=== PATIENT | female | born 1955 | race Caucasian/White ===

== ENCOUNTER 2022-10-22 09:01 | Outpatient (REF) | payer OTHER, SELFPAY ==
--- NOTE | ~2022-10-22 | XR_ITS ---
Exams: Bilateral weight bearing AP and oblique views and 2 additional views left knee lateral and sunrise projection. HISTORY: Pain. COMPARISON: 07/30/2020 FINDINGS: Weight-bearing imaging demonstrates severe degeneration of the left medial tibial femoral joint compartment with notable varus deformity. Generalized hypertrophic spurring. Mild less pronounced degeneration of the right medial femoral tibial joint compartment. No focal bony lesion or radiopaque loose body. No effusion. Moderate degeneration of the left patellofemoral joint. Slight lateral subluxation noted. XR/XR knee standing BI IMPRESSION: Advanced degenerative changes left knee as above. No acute findings. Appearance is similar to baseline allowing for technical differences.
--- NOTE | ~2022-10-22 | XR_ITS ---
Exams: Bilateral weight bearing AP and oblique views and 2 additional views left knee lateral and sunrise projection. HISTORY: Pain. COMPARISON: 07/30/2020 FINDINGS: Weight-bearing imaging demonstrates severe degeneration of the left medial tibial femoral joint compartment with notable varus deformity. Generalized hypertrophic spurring. Mild less pronounced degeneration of the right medial femoral tibial joint compartment. No focal bony lesion or radiopaque loose body. No effusion. Moderate degeneration of the left patellofemoral joint. Slight lateral subluxation noted. XR/XR knee LT 2V IMPRESSION: Advanced degenerative changes left knee as above. No acute findings. Appearance is similar to baseline allowing for technical differences.
== END 2022-10-22 09:02 | disposition home or self-care (01) ==
LOC: HO.HOSX 09:01
PROVIDERS: Visit Provider Orthopaedic Surgery
DX: M17.12 Unilateral primary osteoarthritis, left knee (principal); G31.83 Neurocognitive disorder with Lewy bodies; F02.80 Dementia in other diseases classified elsewhere, unspecified severity, without behavioral disturbance, psychotic disturbance, mood disturbance, and anxiety; R26.89 Other abnormalities of gait and mobility
CPT/HCPCS: 73560; 73565

== ENCOUNTER 2022-10-22 10:39 | Outpatient (AMB) | payer OTHER, SELFPAY ==
--- NOTE | 2022-10-22 10:47 | A.OFFVIS_ITS ---
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 No injury. Pain started about 1 yr ago and has worsen over time. Pain is in her left medial aspect. Radiates down her leg to her foot. Patient has tried cortiosne injection, knee aspirated and gel injection in may with no improvement. Currently states her knee gives out once in a while with on and off swelling. Patient has more allergies to medication and will bring in list next visit. 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 She has difficulties with hearing, has been diagnosed with Lewy body dementia, and is accompanied by her . She has pain with daily activity, which she says is severe and she she is unsure how I've endured this for so long . She says her pain has been worsening for ~1 year and has been worsening over time. She says her pain is in the inside of her knee and radiates down her leg at time. She is unable to stand comfortably without pain and this is frustrating for her. She walks with a shuffling gait and with a cane, and her often helps her walk so she does not fall. She is frustrated and upset with her inability to walk or go hiking with her , and she says this is all she wants to do . She found no relief from aspiration, steroid injections, or viscosupplementation performed at an outside clinic. She says she had relief from her first cortisone injection, but with her second cortisone injection she developed an allergic reaction and is unable to have more. Review of Systems Const All systems reviewed & are unremarkable except as noted in HPI and below Physical Exam Vital Signs: BMI result Body Mass Index 30.7 Const General: no acute distress, alert and awake Orientation/consciousness: patient oriented x3 HEENT Head: Yes normocephalic and Yes atraumatic Eyes EOM: EOMs intact bilaterally Resp Effort & Inspection: normal respiratory effort and able to speak in complete sentences Cardio Jugular venous distension: no JVD Skin General skin exam: turgor normal Rashes: no rashes Neuro General: patient oriented x3 Extrem Other: Left Knee: Shuffling gait Limited motion, ~10-120 degrees with pain TTP medial compartment, especially medial tibial plateau Psych Appearance: grossly normal Affect: normal affect Attitude: cooperative Assessment & Plan Assessment & Plan (1) Osteoarthritis of left knee: Code(s): M17.12 - Unilateral primary osteoarthritis, left knee Plan: This is a 67 year old woman with severe left knee OA. She has pain with daily activity, which she finds intolerable and limiting. She ambulates with a shuffling gait and with an assistive cane. She has failed conservative treatment options at an outside clinic, feels limited in her ADLs, an that her QOL is diminished. I discussed her diagnosis and treatment options. I think some of her poor gait mechanics is related to her Lewy body dementia and its affects on her [employer]. I think the risks of surgery outweight the benefits at this time. I recommend referral to Pain Management, and I think she is a good candidate for this. She has pain limiting her ADLs and wants to be more active. I referred her to Dr. Garcia in Pain Management. (2) Lewy body dementia: Code(s): G31.83 - Neurocognitive disorder with Lewy bodies; F02.80 - Dementia in other diseases classified elsewhere, unspecified severity, without behavioral disturbance, psychotic disturbance, mood disturbance, and anxiety (3) Shuffling gait: Code(s): R26.89 - Other abnormalities of gait and mobility Plan Scribed for Anil Cruz MD by David Bolanos, medical coordinator pesticide use, on 10/22/22 at 11:30 AM, EST. Orders: Orders XR knee LT 2V Today M25.569 - Pain in unspecified knee XR knee standing BI Today M25.569 - Pain in unspecified knee Referrals Pain Management Referral F02.80 - Dementia in other diseases classified elsewhere, unspecified severity, without behavioral disturbance, psychotic disturbance, mood disturbance, and anxiety, G31.83 - Neurocognitive disorder with Lewy bodies, M17.12 - Unilateral primary osteoarthritis, left knee Coding Level of Care Code New Pt Level 4 (54131) Diagnoses Osteoarthritis of left knee M17.12 Lewy body dementia G31.83; F02.80 Shuffling gait R26.89
[2022-10-22 11:04] VITALS: BMI 30.7
== END 2022-10-22 12:02 | disposition home or self-care (01) ==
PROVIDERS: PCP Pediatrics; Visit Provider Orthopaedic Surgery
DX: M17.12 Unilateral primary osteoarthritis, left knee (principal)
CPT/HCPCS: 99204

== ENCOUNTER 2022-11-15 10:15 | Outpatient (AMB) | payer OTHER, SELFPAY ==
[2022-11-15 10:43] VITALS: BP 132/76; PULSE 67; RESP 14; O2SAT 99; BMI 30.3
--- NOTE | 2022-11-15 10:43 | A.OFFVIS_ITS ---
Intake Vital Signs 11/15/22 10:43 Height 5 ft 6 in Weight 188 lb BMI 30.3 BP 132/76 Blood Pressure Location Lt brachial Position Sitting Respiration 14 Pulse 67 Pulse Source Pulse Oximeter Pulse Oximetry (%) 99 Oxygen Delivery Method Room Air Intake Visit Reasons: Unilateral primary osteoarthritis, left knee Allergies prednisolone Allergy (Mild, Verified 11/15/22 10:44) headaches Medication List - Last Reconciled 11/15/22 by Becca Love LPN losartan 25 mg PO DAILY mecobalamin (vitamin B12) mcg PO mirtazapine 7.5 mg PO DAILY HPI Unilateral primary osteoarthritis, left knee HPI Details 67-year-old female is presenting today for a new patient evaluation for left knee osteoarthritis. She has difficulties with hearing, has been diagnosed with Lewy body dementia, and is accompanied by her . She states that her pain has been worsening for about a year now and has been worsening overtime. She has pain with daily activity. Her pain is on the inside of her knee and radiates down her leg at times. She is unable to stand comfortably without pain, and this is frustrating for her. She walks with a shuffling gait and with a cane, and her often helps her walk so she does not fall. She is frustrated and upset with her inability to walk or go hiking with her . She had no relief from aspiration, steroid injections, or visco-supplementation performed at an outside clinic. She had relief from her first cortisone injection, but with her second cortisone injection, she developed an allergic reaction and is unable to have more. She had a fall after her third injection. She has known drug allergies to prednisone. She has tried physical therapy in the past. She has tried hyaluronic acid injection in the past. She had also tried oral medication and bracing in the past with moderate benefits. Review of Systems Const All systems reviewed & are unremarkable except as noted in HPI and below Physical Exam Vital Signs: Last Vital Signs Pulse 67 11/15/22 10:43 Resp 14 11/15/22 10:43 BP 132/76 11/15/22 10:43 Pulse Ox 99 11/15/22 10:43 Oxygen Delivery Method Room Air 11/15/22 10:43 BMI result Body Mass Index 30.3 General: Appears afebrile. Alert and oriented. Mood and affect appropriate. Follows and participates in conversation appropriately. Respiratory effort is unlabored. Able to transition from sit to stand unassisted. Ambulates with bilaterally normal heel strike and toe off. Tenderness to palpation all around the knee joint. Medial meniscus is tenderness to palpation. Left knee is visibly swollen compared to the right knee. Results Reviewed Results Reviewed: 10/22/22: Bilateral weight bearing AP and oblique views and 2 additional views left knee lateral and sunrise projection. FINDINGS: Weight-bearing imaging demonstrates severe degeneration of the left medial tibial femoral joint compartment with notable varus deformity. Generalized hypertrophic spurring. Mild less pronounced degeneration of the right medial femoral tibial joint compartment. No focal bony lesion or radio paque loose body. No effusion. Moderate degeneration of the left patellofemoral joint. Slight lateral subluxation noted. IMPRESSION: Advanced degenerative changes left knee as above. No acute findings. Appearance is similar to baseline allowing for technical differences. Assessment & Plan Assessment & Plan (1) Osteoarthritis of left knee: Comment: Intractable knee pain Code(s): M17.12 - Unilateral primary osteoarthritis, left knee Plan Discussed peripheral nerve stimulators both permanent and temporary vs. Genicular RFA vs. local anesthestic genicular nerve block vs. PRP injections as possible treatment options. The patient is interested in proceeding with temporary left saphenous nerve PNS at this time. Will schedule her for left temporary saphenous nerve PNS. D iscussed the risks and benefits of the procedure with the patient in detail. All questions were answered. The patient is on board with the plan. Justification for interventional therapy: ? Patient with average pain > 6/10 ? Patient has exhausted conservative therapy Scribed for Dr. Garcia by Jamie Kraus, hospitalist medical director, on 11/15/2022. I, Dr. Garcia, have personally reviewed and agree with the information entered by the scribe. Coding Level of Care Code New Pt Level 3 (58956) Diagnoses Osteoarthritis of left knee M17.12
== END 2022-11-15 11:38 | disposition home or self-care (01) ==
PROVIDERS: PCP Pediatrics; Visit Provider Internal Medicine
DX: M17.12 Unilateral primary osteoarthritis, left knee (principal)
CPT/HCPCS: 99203

== ENCOUNTER → 2022-11-15 10:15 | Outpatient (BNVA) | payer OTHER, SELFPAY | PROVIDERS: PCP Pediatrics; Visit Provider Internal Medicine ==

== ENCOUNTER 2023-01-05 09:23 | Day surgery (SDC) | payer MEDICARE, SELFPAY ==
[2023-01-05 10:25] VITALS: BP 132/54; PULSE 72; RESP 18; TEMP 37.4; O2SAT 97; BMI 29.0
[2023-01-05 12:00] VITALS: BP 163/96; PULSE 72; RESP 16; TEMP 36.4; O2SAT 100
--- NOTE | 2023-01-05 12:24 | MHC.SHP ---
Pre-Procedural Eval Section A Date of Service: 01/05/23 The patient is an INPATIENT: No Changes since office visit: Yes Patient answered all questions The History & Physical has been completed within 30 days and I have reviewed it.: No Section B Chief Complaint: Unilateral primary osteoarthritis, left knee Relevant Social History: None Present Medications: see Short Stay Collaborative assessment Medical History: No relevant PMH History of Previous Operations: No relevant previous surgery Allergies: Allergies Allergy/AdvReac Type Severity Reaction Status Date / Time prednisolone Allergy Mild headaches Verified 11/15/22 10:44 ibuprofen Allergy Unknown Verified 01/05/23 10:06 NSAIDS (Non-Steroidal Allergy Unknown Verified 01/05/23 10:06 Anti-Inflamma Review of Systems Sugical H&P ROS: Negative: Constitution, Cardiovascular and Respiratory Exam Surgical H&P Exam: Normal: HEENT, Normal: Heart and Normal: Lungs Plan Diagnosis/Plan: Unchanged I have reviewed the history and physical and performed a pertinent physical examination on my patient. No changes have occurred unless specified. Time Spent With Patient Time: Total time managing care of this patient today ____ minutes.
--- NOTE | 2023-01-05 15:42 | PM.OP ---
Brief Operative Note Date of Service: 01/05/23 Pre-op diagnosis: Chronic knee pain, left Post-op diagnosis: same Procedure: Temporary saphenous nerve stimulator placement Implants: Sprint temporary PNS system Surgeon: Tyree Garcia MD Anesthesia: local Was an Retail Pharm[employer] Merchandiser used for this Procedure?: No Estimated blood loss (mL): 4 Pathology: none sent Condition: stable Disposition: same day
--- NOTE | 2023-01-05 15:43 | P.OP_ITS ---
Operative Note Operative Note Date of Service: 01/05/23 Narrative: Peripheral Nerve Stimulation Temporary Lead Placement, Ultrasound-Guided, Saphenous Nerve, Left ? After the risks, benefits and alternatives were discussed with the patient and informed consentwas obtained, patient was placed in the supine position and padded to foster comfort. Appropriate skin and bony landmarks were identified, and pertinent vascular structures were located. The skin overlying the needle entry site was prepped and draped in sterile fashion. Ultrasound was used to identify the femoral artery, the femoral vein and the saphenous nerve. After identifying and marking the intended target along the course of the saphenous nerve, the skin around the planned entry point and the subcutaneous tissues Were injected with local anesthetic. An introducer needle and stimulating probe were assembled, inserted and advanced along the intended course of the saphenous; nerve, taking care to maintain the proper depth of insertion as the introducer was advanced under ultrasound guidance. The introducer needle was delivered to a location in proximity to the nerve taking care not to puncture the femoral artery or the vein. Multiple stimulation parameters were used to deliver stimulation to the saphenous nerve in concert with stimulating at multiple positions around the nerve. Nerve target acquisition was confirmed noting generation of sensory and mild motor effects (paresthesia, muscle tension, etc) in the medial knee, leg and ankle; corresponding to the distribution of the saphenous nerve. Various electrical parameter combinations were tested, and the lead location was adjusted (physica lly relocated under ultrasound guidance) until the patient indicated medial knee paresthesia and tension overlapping the distribution of the patient?s typical region of pain. The stimulating probe was removed from the introducer and a percutaneous lead was guided through the needle and delivered to a location in similar proximity to the nerve. Final location was verified with electrical stimulation and documented. The introducer needle was removed, and the exposed end of the percutaneous lead was attached to an external stimulator unit. Various electrical parameter combinations were again tested until the patient indicated paresthesia and muscle tension overlapping the distribution of the patient?s typical region of pain. After confirming that lead impedance was in the normal range, the external unit was detached, the needle was removed, and the lead was anchored at the skin. The lead was threaded into the connector block and electrical continuity and desired patient response was confirmed. The connector block was attached to the external stimulator unit. The site was covered with a sterile occlusive dressing. A final ultrasound image was taken to document final placement. The patient was observed for stability of vital signs and comfort.
== END 2023-01-05 12:58 | disposition home or self-care (01) ==
PROVIDERS: PCP Pediatrics; Visit Provider Internal Medicine
PROC: (CPT 64555; principal; 2023-01-05 10:30)
DX: M17.12 Unilateral primary osteoarthritis, left knee (principal); G89.29 Other chronic pain; M25.562 Pain in left knee; R26.89 Other abnormalities of gait and mobility; I10 Essential (primary) hypertension; G31.83 Neurocognitive disorder with Lewy bodies; F02.80 Dementia in other diseases classified elsewhere, unspecified severity, without behavioral disturbance, psychotic disturbance, mood disturbance, and anxiety; Z79.899 Other long term (current) drug therapy; Z88.8 Allergy status to other drugs, medicaments and biological substances
CPT/HCPCS: 64555; C1778

== ENCOUNTER → 2023-01-05 09:23 | Outpatient (BNV) | payer MEDICARE, SELFPAY | PROVIDERS: PCP Pediatrics; Visit Provider Internal Medicine | DX: M17.12 Unilateral primary osteoarthritis, left knee (principal) | CPT/HCPCS: 64555 ==

== ENCOUNTER 2023-01-14 08:09 | Outpatient (AMB) | payer OTHER, SELFPAY ==
[2023-01-14 08:25] VITALS: BP 125/71; PULSE 78; RESP 16; O2SAT 98; BMI 29.0
--- NOTE | 2023-01-14 08:25 | MHC.OFFVIS ---
Intake Vital Signs 01/14/23 08:25 Height 5 ft 7 in Weight 185 lb BMI 29.0 BP 125/71 Blood Pressure Location Lt brachial Position Sitting Respiration 16 Pulse 78 Pulse Source Pulse Oximeter Pulse Oximetry (%) 98 Oxygen Delivery Method Room Air Intake Visit Reasons: s/p Left SN Sprint/lvm Allergies prednisolone Allergy (Mild, Verified 01/14/23 08:26) headaches ibuprofen Allergy (Verified 01/14/23 08:26) Unknown NSAIDS (Non-Steroidal Anti-Inflamma Allergy (Verified 01/14/23 08:26) Unknown HPI HPI Comments History of Present Illness Details Laura is a very pleasant 67 year old female who presents to the office today, accompanied by her , for follow up left SN Sprint 01/05/2023. They have been in close contact with the Sprint Rep and are titrating stimulation as tolerated. Currently they are between 65-75, remote was left at home today. Pain improved for 2 days after placement but patient reports since then her pain is unchanged and walking remains very difficult d/t pain. Today pain is reported as 9/10. Patient has Lewy Body Dementia, her is unsure how much of her difficulty walking is related to the left knee vs the progressing LBD. Laura is frustrated with her inability to be more active and mobile, she ambulates with shuffling gait utilizing a cane, at times she requires additional assistance. Patient wants to be able to hike with her sons. Procedure: 01/05/2023: Left Saphenous Nerve Sprint PNS Prior: 67-year-old female is presenting today for a new patient evaluation for left knee osteoarthritis. She has difficulties with hearing, has been diagnosed with Lewy body dementia, and is accompanied by her . She states that her pain has been worsening for about a year now and has been worsening overtime. She has pain with daily activity. Her pain is on the inside of her knee and radiates down her leg at times. She is unable to stand comfortably without pain, and this is frustrating for her. She walks with a shuffling gait and with a cane, and her often helps her walk so she does not fall. She is frustrated and upset with her inability to walk or go hiking with her . She had no relief from aspiration, steroid injections, or visco-supplementation performed at an outside clinic. She had relief from her first cortisone injection, but with her second cortisone injection, she developed an allergic reaction and is unable to have more. She had a fall after her third injection. She has known drug allergies to prednisone. She has tried physical therapy in the past. She has tried hyaluronic acid injection in the past. She had also tried oral medication and bracing in the past with moderate benefits. [facility] Medical History (Updated 01/04/23 @ 11:00 by Pema Garcia RN) HTN (hypertension) Review of Systems Const All systems reviewed & are unremarkable except as noted in HPI and below Physical Exam Vital Signs: Last Vital Signs Pulse 78 01/14/23 08:25 Resp 16 01/14/23 08:25 BP 125/71 01/14/23 08:25 Pulse Ox 98 01/14/23 08:25 Oxygen Delivery Method Room Air 01/14/23 08:25 BMI result Body Mass Index 29.0 General: Answers questions appropriately. Engaged in examination. Skin: warm, dry, intact HEENT: Normocephalic. Hearing intact. Cardiac: External chest normal in appearance. Respiratory: No cough, audible wheezing or stridor. Abdomen: without gross distension. MS: Sprint in place left thigh, insertion site dry, clean, intact. no redness, warmth or drainage noted.? Able to transition from sit to stand with assistance Neurological: Speech clear. Shuffling gait with cane Psychiatric: Appropriate mood and affect. Assessment & Plan Assessment & Plan (1) Osteoarthritis of left knee: Comment: Intractable knee pain Code(s): M17.12 - Unilateral primary osteoarthritis, left knee (2) Lewy body dementia: Code(s): G31.83 - Neurocognitive disorder with Lewy bodies; F02.80 - Dementia in other diseases classified elsewhere, unspecified severity, without behavioral disturbance, psychotic disturbance, mood disturbance, and anxiety Plan Laura is a pleasant 67 year old female who presents to the office today, accompanied by her , for follow up. She is s/p Left Saphenous Nerve Sprint placed 01/05/2023. She reports minimal pain relief over the last 10 days. Per her she did seem to have improvement in her pain for the first 2 days after placement but since then she has reported pain is unchanged. They have been working closely with the Sprint Rep and titrating stimulation as tolerated. They were advised that it could take up to 2 weeks before she will notice benefit of pain improvement. Unfortunately, given patients history of Lewy Body Dementia, determining patients true benefit received from Sprint is challenging. She is frustrated with her condition and functional limitations caused by her left knee OA. She is not a candidate for replacement surgery at this time. Dressing taken down, area cleansed with chloraprep. Insertion site dry, clean, intact without redness, warmth or drainage. New tegaderm dressing applied. Her observed and feels confident he will be able to change her dressing at home. All questions and concerns were answered during the visit. Patient will follow up in the office as planned with Dr Garcia. Coding Level of Care Code Tele Est Pt Level 3 (38734) Diagnoses Osteoarthritis of left knee M17.12 Lewy body dementia G31.83; F02.80
== END 2023-01-14 09:02 | disposition home or self-care (01) ==
PROVIDERS: PCP Pediatrics; Visit Provider Registered Nurse Emergency
DX: M17.12 Unilateral primary osteoarthritis, left knee (principal); G31.83 Neurocognitive disorder with Lewy bodies; F02.80 Dementia in other diseases classified elsewhere, unspecified severity, without behavioral disturbance, psychotic disturbance, mood disturbance, and anxiety
CPT/HCPCS: 99024

== ENCOUNTER → 2023-01-14 08:09 | Outpatient (BNVA) | payer OTHER, SELFPAY | PROVIDERS: PCP Pediatrics; Visit Provider Registered Nurse Emergency ==

== ENCOUNTER → 2023-01-27 09:27 | Outpatient (BNVA) | payer OTHER, SELFPAY | PROVIDERS: PCP Pediatrics; Visit Provider Internal Medicine | DX: Z45.42 Encounter for adjustment and management of neurostimulator (principal) | CPT/HCPCS: 99211 ==